=== PATIENT | female | born 1975 | race Caucasian/White ===

== ENCOUNTER 2022-10-20 00:10 | Emergency (ER) | payer OTHER, SELFPAY ==
[2022-10-20 00:31] VITALS: BP 138/77; PULSE 89; RESP 18; TEMP 36.7; O2SAT 99; BMI 36.0
[2022-10-20 01:00] VITALS: O2SAT 96
[2022-10-20] MEDS: 0.9 % SODIUM CHLORIDE 1000 ml 1,000 ML IV (01:20)
--- NOTE | 2022-10-20 01:24 | CRLHL7_ITS ---
For Patients: As a result of the Century Cures Act, medical imaging exams and procedure reports are released immediately into your electronic medical record. You may view this report before your referring provider. If you have questions, please contact your health care provider. INDICATION: Right-sided swelling. TECHNIQUE: CT soft tissue of the neck was acquired with 96 cc Isovue 370 IV contrast. COMPARISON: None. FINDINGS: Skull base: Unremarkable. Pharynx/Larynx/Trachea: Epiglottis is normal. Bilateral tonsillitis, worse on the right. Right tonsil contains an 8 mm phlegmon. Airway is patent. Salivary glands: Unremarkable. Thyroid gland: Unremarkable. No significant nodules. Lymph nodes: Reactive lymphadenopathy present. Vessels: Unremarkable for age. Bones: Unremarkable for age. Misc: No inflammation, mass or fluid collection. Lung apices: Unremarkable. IMPRESSION: Bilateral tonsillitis with an 8 mm phlegmon in the right tonsil. No daniella abscess. Please note that all CT scans at this facility use dose modulation, iterative reconstruction, and/or weight-based dosing when appropriate to reduce radiation dose to as low as reasonably achievable. Dictated by Benjy Griffin MD @ 10/20/2022 2:53:22 AM (Electronically Signed)
[2022-10-20] MEDS: METHYLPREDNISOLONE SOD SUCC 62.5 MG/ML (125) 93.75 MG IVP (01:25)
[2022-10-20] MEDS: MORPHINE 4 MG/ML INJ IVP (01:30)
[2022-10-20 01:33] LABS: Strep A DNA Probe* NOT DETECTED (Not Detectd)
[2022-10-20 01:36] VITALS: BP 119/67; PULSE 110; RESP 18; O2SAT 99
[2022-10-20 01:40] LABS: Basophils Percent Auto 0.3 % (0.0-3.0); Eosinophils Percent Auto 2.9 % (0.0-7.0); Hematocrit 39.9 % (33.0-51.0); Hemoglobin* 13.3 gm/dL (12.0-16.0); Immature Granulocytes Pct Auto 0.3 %; Mean Corpuscular HGB Conc 33 gm/dL (32-36); Mean Corpuscular Hemoglobin 30 pg (26-34); Mean Corpuscular Volume 90 fL (80-100); Monocytes Percent Auto 8.2 % (0.0-11.0); Neutrophils Percent Auto 75.3 % (42.0-72.0); Platelet Count* 362 K/uL (140-440); RDW Coefficient of Variation % 13.4 % (11.5-15.5); Red Blood Count 4.46 m/uL (4.00-5.20); White Blood Count* 15.07 K/uL (4.50-11.00)
[2022-10-20 01:42] LABS: Slide Review Reflex No
[2022-10-20 02:01] VITALS: BP 123/66; PULSE 105; RESP 18; O2SAT 100
[2022-10-20 02:58] LABS: Mono Screen* Negative (Negative)
[2022-10-20 03:01] VITALS: BP 108/62; PULSE 97; RESP 18; O2SAT 95
[2022-10-20 03:05] LABS: Blood Urea Nitrogen* 9 mg/dL (5-24); C Reactive Protein* 6.2 mg/dL (0.5-1.0); Calcium* 9.2 mg/dL (8.4-10.6); Carbon Dioxide* 23 mmol/L (20-32); Chloride* 107 mmol/L (96-114); Creatinine* 0.5 mg/dL (0.5-1.5); Est. Creatinine Clearance* 108.83; Estimated Glomerular Filt Rate 116 ml/min; Glucose* 125 mg/dL (60-115); Potassium* 3.8 mmol/L (3.6-5.1); Sodium* 140 mmol/L (135-149)
[2022-10-20] MEDS: AMPICILLIN/SULBACTAM 3 GM in 0.9 % SODIUM CHLORIDE Mini-bag 100 ML IVPB (03:24)
[2022-10-20 03:59] VITALS: BP 138/77; PULSE 89; RESP 18; TEMP 36.7
--- NOTE | 2022-10-20 08:43 | ED.GENADULT ---
HPI - General Adult General Chief complaint: Sore Throat Stated complaint: Wants throat checked out Time Seen by Provider: 10/20/22 00:11 History of Present Illness HPI narrative: 47-year-old woman presenting to the emergency department complaint of increasingly sore throat over the last 2 days. Intensified this evening. Finds it very difficult to swallow. Is not having any difficulty breathing. No chest pain. Measured temperature up to 101 I believe that was yesterday. Screened negative for influenza and COVID yesterday. No nausea/vomiting or diarrhea. No clearly identified exposure. Related Data Allergies Allergy/AdvReac Type Severity Reaction Status Date / Time No Known Drug Allergies Allergy Verified 10/20/22 00:34 Review of Systems Status of ROS: Reports: 6 or more systems reviewed and unremarkable except as noted in History and below [facility] Social History Smoking Status: Never smoker Do you use any of these nicotine containing products: None How often do you have a drink containing alcohol: never How often do you have six or more drinks on one occasion: Never AUDIT-C Alcohol total score: 0 Non-prescribed substance use: denies use Exam Narrative: Exam Narrative: Pleasant. NAD. Speaking with slightly affected voice as if seems a little uncomfortable to open her mouth. Cranial nerves 2-12 look to be intact. Breathing easily. Lungs appear to be clear. Heart with regular rate and rhythm. Skin is warm and dry. Neck appears to be sore in rotation. There is more fullness on the right upper anterior cervical neck versus the left. Clearly more tender as she flinches. No posterior cervical lymphadenopathy. Oropharynx is moist. There is moderate bilateral tonsillar edema with exudate greater on the left. Some encroachment of the right tonsil demonstrating asymmetry. Generally erythematous/beefy. No stridor. Mild trismus. Const: Vital Signs, click to edit/add: Vital Signs - 24 hr 10/20/22 00:31 10/20/22 01:00 10/20/22 01:36 Temperature 98.0 F Pulse Rate 110 H Pulse Rate [Right Pulse Oximeter] 89 Respiratory Rate 18 18 Blood Pressure 119/67 Blood Pressure [Ri ght Upper Arm] 138/77 Pulse Oximetry 99 96 99 Oxygen Delivery Me thod Room Air 10/20/22 02:01 10/20/22 03:01 10/20/22 03:59 Temperature 98.0 F Pulse Rate 105 H 97 Pulse Rate [Right Pulse Oximeter] 89 Respiratory Rate 18 18 18 Blood Pressure 123/66 108/62 Blood Pressure [Ri ght Upper Arm] 138/77 Pulse Oximetry 100 95 Oxygen Delivery Me thod Documenting provider has reviewed patient's vital signs: yes Course Vital Signs Vital signs: Initial Vital Signs Respiratory Effort Spontaneous 10/20/22 00:30 Respiratory Depth Normal 10/20/22 00:30 Respiratory Pattern 10/20/22 00:30 Vital Signs Temperature 98.0 F 10/20/22 00:31 Pulse Rate 89 10/20/22 00:31 Respiratory Rate 18 10/20/22 00:31 Blood Pressure 138/77 10/20/22 00:31 Pulse Oximetry 99 10/20/22 00:31 Oxygen Delivery Method 10/20/22 00:31 Temperature 98.0 F 10/20/22 03:59 Pulse Rate 89 10/20/22 03:59 Respiratory Rate 18 10/20/22 03:59 Blood Pressure 138/77 10/20/22 03:59 Pulse Oximetry 95 10/20/22 03:01 Oxygen Delivery Method 10/20/22 00:31 Medical Decision Making MDM Narrative Medical decision making narrative: With the degree of discomfort demonstrating and the asymmetry apparent any or pharyngeal exam I do think that a scan would be in order. I would have concerns of abscess formation here. IV was established. L of normal saline. Morphine. Labs showing notable elevation of white count and CRP. Strep was negative. [place] negative though probably too early to check. By my read IV contrasted CT soft tissue neck showing some lucency within the right tonsil that I would think is a developing abscess. Radiology noting 8 mm phlegmon formation without daniella abscess and bilateral tonsillitis. Given methylprednisolone and Unasyn IV. I did discuss this case with Dr. Regan our ENT on-call. Recommended 24 hours IV antibiotics. Concern would be inevitable abscess as demonstrating trismus but concurs that could likely be managed outpatient at this time. Provided not worsening will be then transitioned to prednisone, Augmentin. Oxycodone available if needed; these pills should be small enough to be able to be swallowed. Lab Data Lab results reviewed: Yes I reviewed the patient's lab results Labs: Lab Results 10/20/22 10/20/22 10/20/22 Range/Units 00:20 01:25 01:25 WBC 15.07 H (4.50-11.00) K/uL RBC 4.46 (4.00-5.20) m/uL Hgb 13.3 (12.0-16.0) gm/dL Hct 39.9 (33.0-51.0) % MCV 90 (80-100) fL MCH 30 (26-34) pg MCHC 33 (32-36) gm/dL RDW Coeff of Mane 13.4 (11.5-15.5) % Plt Count 362 (140-440) K/uL Neut % (Auto) 75.3 H (42.0-72.0) % Lymph % (Auto) 13.0 L (20-44) % [place] % (Auto) 8.2 (0.0-11.0) % Eos % (Auto) 2.9 (0.0-7.0) % Baso % (Auto) 0.3 (0.0-3.0) % Neut # (Auto) 11.30 H (1.7-7.0) K/uL Lymph # (Auto) 2.00 (0.90-2.90) K/uL [place] # (Auto) 1.20 H (0.00-0.90) K/UL Eos # (Auto) 0.40 (0.00-0.50) K/uL Baso # (Auto) 0.00 (0.00-0.30) K/uL Sodium (135-149) mmol/L Potassium (3.6-5.1) mmol/L Chloride (96-114) mmol/L Carbon Dioxide (20-32) mmol/L BUN (5-24) mg/dL Creatinine (0.5-1.5) mg/dL Estimated Creat Clear Estimated GFR ml/min Glucose (60-115) mg/dL Calcium (8.4-10.6) mg/dL C-Reactive Protein (0.5-1.0) mg/dL Monoscreen Negative (Negative) Group A Strep DNA NOT DETECTED (Not Detectd) 10/20/22 Range/Units 01:25 WBC (4.50-11.00) K/uL RBC (4.00-5.20) m/uL Hgb (12.0-16.0) gm/dL Hct (33.0-51.0) % MCV (80-100) fL MCH (26-34) pg MCHC (32-36) gm/dL RDW Coeff of Mane (11.5-15.5) % Plt Count (140-440) K/uL Neut % (Auto) (42.0-72.0) % Lymph % (Auto) (20-44) % [place] % (Auto) (0.0-11.0) % Eos % (Auto) (0.0-7.0) % Baso % (Auto) (0.0-3.0) % Neut # (Auto) (1.7-7.0) K/uL Lymph # (Auto) (0.90-2.90) K/uL [place] # (Auto) (0.00-0.90) K/UL Eos # (Auto) (0.00-0.50) K/uL Baso # (Auto) (0.00-0.30) K/uL Sodium 140 (135-149) mmol/L Potassium 3.8 (3.6-5.1) mmol/L Chloride 107 (96-114) mmol/L Carbon Dioxide 23 (20-32) mmol/L BUN 9 (5-24) mg/dL Creatinine 0.5 (0.5-1.5) mg/dL Estimated Creat Clear 108.83 Estimated GFR 116 ml/min Glucose 125 H (60-115) mg/dL Calcium 9.2 (8.4-10.6) mg/dL C-Reactive Protein 6.2 H (0.5-1.0) mg/dL Monoscreen (Negative) Group A Strep DNA (Not Detectd) Discharge Plan Discharge Clinical Impression: Acute tonsillitis Patient Disposition: Home w/ Parent or Adult Condition: Improved Additional Instructions: Focus on hydration. Return for 2 more doses of IV Unasyn. Be seen otherwise for increasing/uncontrolled pain, inability to swallow saliva, any indication of difficulty breathing. After 3rd total dose of Unasyn then start Augmentin from [facility]. Can take ibuprofen or acetaminophen for pain. You have oxycodone as well from [facility]. Prednisone from [facility] to start midday today. Consider salt water gargles a couple of times daily where you dissolve 1/4 tsp salt in 5 oz warm water. Follow Up/Referrals: Lj Loera MD [Primary Care Provider] - Stand Alone Forms: [employer] Info Instructions
== END 2022-10-20 04:00 | disposition home or self-care (01) ==
PROVIDERS: Emergency Provider Family Medicine; PCP Internal Medicine
DX: J03.90 Acute tonsillitis, unspecified (principal)
CPT/HCPCS: 36415; 70491; 80048; 85025; 86140; 86308; 87502; 87634; 87635; 87651; 94761; 96365; 96375; 99284; 99285; J0295; J2270; J2930; J7030; Q9967

== ENCOUNTER 2022-10-20 19:38 | Outpatient (RCR) | payer OTHER, SELFPAY ==
[2022-10-20 19:53] VITALS: BP 138/81; PULSE 88; RESP 18; TEMP 36.9; O2SAT 97
[2022-10-20 20:33] VITALS: BP 112/73; PULSE 85; RESP 18; TEMP 36.8; O2SAT 97
== END 2023-04-18 23:59 | disposition home or self-care (01) ==
LOC: CCIC 19:38
PROVIDERS: PCP Internal Medicine; Referring Provider Internal Medicine; Visit Provider Family Medicine
DX: J03.90 Acute tonsillitis, unspecified (principal)
CPT/HCPCS: 96365; 99211; J0295

== ENCOUNTER 2023-04-07 08:03 | Outpatient (CLI) | payer OTHER, SELFPAY | END 2023-04-07 08:04 | disposition home or self-care (01) | PROVIDERS: PCP Internal Medicine; Visit Provider Internal Medicine | DX: E03.9 Hypothyroidism, unspecified (principal) | CPT/HCPCS: 80053; 80061; 84443 ==

== ENCOUNTER 2024-03-22 09:13 | Outpatient (CLI) | payer OTHER, SELFPAY | END 2024-03-22 09:14 | disposition home or self-care (01) | PROVIDERS: PCP Internal Medicine; Visit Provider Internal Medicine | DX: E03.9 Hypothyroidism, unspecified (principal); E66.9 Obesity, unspecified | CPT/HCPCS: 80053; 80061; 84443 ==

== ENCOUNTER 2025-06-07 08:11 | Outpatient (CLI) | payer OTHER, SELFPAY | END 2025-06-07 08:12 | disposition home or self-care (01) | PROVIDERS: PCP Internal Medicine; Visit Provider Internal Medicine | DX: E03.9 Hypothyroidism, unspecified (principal); F41.9 Anxiety disorder, unspecified; F32.A Depression, unspecified | CPT/HCPCS: 80053; 84443 ==

== ENCOUNTER 2025-09-21 09:04 | Outpatient (CLI) | payer OTHER, SELFPAY ==
[2025-09-27 08:44] LABS: Pap Test Digital Imaging Done
[2025-09-27 16:29] LABS: HPV Source Cervix
== END 2025-09-21 09:05 | disposition home or self-care (01) ==
PROVIDERS: PCP Internal Medicine; Visit Provider Obstetrics & Gynecology
DX: Z01.419 Encounter for gynecological examination (general) (routine) without abnormal findings (principal)
CPT/HCPCS: 87624; 87625; 88141; 88142; 88175

== ENCOUNTER 2025-10-08 07:56 | Outpatient (CLI) | payer OTHER, SELFPAY ==
--- NOTE | 2025-10-08 08:15 | CRLHL7_ITS ---
For Patients: As a result of the Century Cures Act, medical imaging exams and procedure reports are released immediately into your electronic medical record. You may view this report before your referring provider. If you have questions, please contact your health care provider. INDICATION: BILATERAL SCREENING MAMMOGRAM, ASYMPTOMATIC 50 Y/O FEMALE COMPARISON: 08/14/2020, 05/13/2017 TECHNIQUE: Digital mammogram in CC and MLO projections including computer-aided detection (CAD) and tomosynthesis. BREAST COMPOSITION: There are scattered areas of fibroglandular density. FINDINGS: No suspicious findings. ASSESSMENT: BI-RADS 1 Negative RECOMMENDATION: Annual screening mammogram. A lay language report of this examination will be provided to the patient. Dictated by: Oren Clark MD @ 10/08/2025 09:09:19 (Electronically Signed)
== END 2025-10-08 07:57 | disposition home or self-care (01) ==
LOC: MAMMO 07:56
PROVIDERS: PCP Internal Medicine; Visit Provider Internal Medicine
DX: Z12.31 Encounter for screening mammogram for malignant neoplasm of breast (principal)
CPT/HCPCS: 77063; 77067